=== PATIENT | male | born 1980 | race Caucasian/White ===

== ENCOUNTER 2021-10-04 16:55 | Emergency (ER) | payer BC ==
[2021-10-04] MEDS ORDERED: NORVASC 5 MG PO ONE (17:06)
[2021-10-04] MEDS ORDERED: Catapres 0.1 MG PO ONE (17:06)
[2021-10-04] MEDS ORDERED: VASOTEC I.V. 2.5 MG IV ONE ×2 (17:06→17:28)
[2021-10-04] MEDS ORDERED: Catapres 0.1 MG ONE (17:14)
[2021-10-04] MEDS ORDERED: NORVASC 5 MG ONE (17:14)
[2021-10-04] MEDS ORDERED: Sodium Chloride 0.9% 1000 ML 1,000 ML ONE (17:14)
[2021-10-04] MEDS ORDERED: Sodium Chloride 0.9% 1000 ML 1,000 ML IV SCH (17:15)
[2021-10-04 17:23] LABS: Basophil (Absolute #) 0.02 (0-0.4); Eosinophil % 4.4 % (0.00-5.0); Eosinophil (Absolute #) 0.41 (0-0.5); Hematocrit 49.8 % (42-50); Hemoglobin 16.9 gm/dl (12.5-18.0); Lymphocytes % 34.4 % (24.0-44.0); Mean Cell Volume 89.7 fl (78-100); Mean Corpuscular Hemoglobin 30.5 pg (26-32); Mean Corpuscular Hgb Concent. 33.9 g/dl (32-36); Mean Platelet Volume 11.3 fl (7.5-11.0); Monocyte (Absolute #) 1.07 (0.0-1.3); Monocytes % 11.5 % (0.0-12.0); Neutrophil % 49.5 % (36.0-66.0); Platelet Count 277 K/mm3 (150-450); Red Blood Count 5.55 M/mm3 (4.1-5.6); White Blood Count 9.3 K/mm3 (4.0-10.5)
[2021-10-04 17:29] LABS: INR 0.98 (0.8-3.0); PROTIME 11.6 SECONDS (9.4-12.5)
[2021-10-04 17:48] LABS: ALKALINE PHOSPHATASE 70 U/L (38-126); ANION GAP 10.9 MEQ/L (5-15); BLOOD UREA NITROGEN 14 mg/dL (9-20); CHLORIDE 102 mmol/L (98-107); Calcium 10.1 mg/dL (8.4-10.2); Carbon Dioxide 28 mmol/L (22-30); Creatinine 1 0.68 mg/dL (0.66-1.25); EST GLOMERULAR FILTRATION RATE > 60.0 ML/MIN; Glucose 89 mg/dL (74-106); LIPASE 96 U/L (23-300); NT PRO BNP 12.1 pg/mL (0-450); Potassium 3.8 mmol/L (3.5-5.1); SGOT/AST 30 U/L (17-59); SGPT/ALT 34 U/L (0-50); SODIUM 136 mmol/L (137-145); Total Protein 8.4 g/dL (6.3-8.2)
--- NOTE | 2021-10-04 17:57 | ERPHSYRPT ---
- History of Present Illness Time Seen by Provider: 10/04/21 17:10 Historian: patient Exam Limitations: no limitations (Patient is a 41-year-old male who has a long history of hypertension who went for 180 days or more without his medications. He went to the clinic to get them refilled and on Monday he started to have some chest pressure which has not gone away. So he went to the clinic to see what was happening.) Patient Subjective Stated Complaint: Pt states "I went to the clinic because I have been out of my blood pressure meds and went to the clinic to get them refilled and on monday I started to have chest pressure and it never went away so I went to the clinic to see what was happening." Triage Nursing Assessment: Pt presented alert and oriented X 3, skin pwd Pt ambulates with an upright steady gait, able to speak in clear full sentences pt in no apparent respiratory distress. pt resting comfortably on the bed. Physician History: Patient is a 41-year-old male who presents with a complaint of chest pressure which has been present for some time. He has a history of hypertension and was out of his medicine for almost 6 months when he went to the clinic to get his medicine he then developed some chest pressure. He went back to the clinic to see what might be causing the chest pressure which she refuses to call pain and was referred to the ER. His blood pressure medicine consist of amlodipine 5 mg a day his blood pressure has remained elevated despite restarting the medicine on arrival his blood pressure was it was approximately 200 systolic over 110 diastolic. His medication consist of amlodipine 5 mg daily and his blood pressure has not really come down much on the days that he has been on the amlodipine. 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.) Nitro Today/Relief: no nitro taken today Aspirin Treatment Today: no aspirin today Allergies/Adverse Reactions: No Known Drug Allergies Allergy (Unverified 10/04/21 17:08) Home Medications: Allopurinol 100 mg [Zyloprim 100 mg] 100 mg PO DAILY 10/04/21 [History] Amlodipine Besylate 5 mg [Norvasc 5 mg] 5 mg PO DAILY 10/04/21 [History] Hx Tetanus, Diphtheria Vaccination/Date Given: Yes Hx Influenza Vaccination/Date Given: No Hx Pneumococcal Vaccination/Date Given: No Immunizations Up to Date: Yes Travel Risk - International Travel Have you traveled outside of the country in past 3 weeks: No - Coronavirus Screening Are you exhibiting any of the following symptoms?: No Close contact with a COVID-19 positive Pt in past 14-21 Days: No - Vaccine Status Have you recieved a Covid-19 vaccination: Yes Regional Economic Liaison: Unknown - Vaccination Dates Date of 2cond Vaccination (if applicable): unknown Dates if Unknown: unknown - Review of Systems Constitutional: No Fever, No Chills Eyes: No Symptoms Ears, Nose, & Throat: No Symptoms Respiratory: No Cough, No Dyspnea Cardiac: No Chest Pain, No Edema, No Syncope Abdominal/Gastrointestinal: No Abdominal Pain, No Nausea, No Vomiting, No Diarrhea Genitourinary Symptoms: No Dysuria Musculoskeletal: No Back Pain, No Neck Pain Skin: No Rash Neurological: No Dizziness, No Focal Weakness, No Sensory Changes Psychological: No Symptoms Endocrine: No Symptoms All Other Systems: Reviewed and Negative - Past Medical History Pertinent Past Medical History: Yes Cardiac History: Hypertension Musculoskeletal History: Other Other Medical History: gout - Past Surgical History Past Surgical History: Yes Other Surgical History: hernia - Social History Smoking Status: Former smoker Exposure to second hand smoke: No Drug Use: none Patient Lives Alone: No - Nursing Vital Signs Nursing Vital Signs: Initial Vital Signs Temperature 98.2 F 10/04/21 17:01 Pulse Rate 82 10/04/21 17:01 Respiratory Rate 20 10/04/21 17:01 Blood Pressure 181/112 10/04/21 17:01 O2 Sat by Pulse Oximetry 99 10/04/21 17:01 Pain Scale Pain Intensity 0 - Physical Exam General Appearance: no apparent distress, alert Eye Exam: PERRL/EOMI, eyes nml inspection Ears, Nose, Throat Exam: normal ENT inspection, moist mucous membranes Neck Exam: normal inspection, non-tender, supple, full range of motion Respiratory Exam: normal breath sounds, lungs clear, No respiratory distress Cardiovascular Exam: regular rate/rhythm, normal heart sounds Gastrointestinal/Abdomen Exam: soft, No tenderness, No mass Back Exam: normal inspection, No CVA tenderness, No vertebral tenderness Extremity Exam: normal inspection, normal range of motion Neurologic Exam: alert, oriented x 3, cooperative, normal mood/affect, sensation nml, No motor deficits Skin Exam: normal color, warm, dry SpO2: 99 - Course Nursing assessment & vital signs reviewed: Yes EKG Interpreted by Me: RATE (82), Sinus Rhythm, NORMAL AXIS, NORMAL INTERVALS, Non-specific ST Changes Ordered Tests: Active Orders 24 hr Category Date Time Status Inspector Air Carrier STAT Care 10/04/21 17:07 Active EKG-ER Only STAT Care 10/04/21 17:06 Active IV Insertion STAT Care 10/04/21 17:06 Active CHEST 1 VIEW (PORTABLE) Stat Exams 10/04/21 17:07 Taken CBC W DIFF Stat Lab 10/04/21 17:05 Completed CMP Stat Lab 10/04/21 17:05 Completed D-DIMER QUANTITATIVE Stat Lab 10/04/21 17:05 Completed LIPASE Stat Lab 10/04/21 17:05 Completed Lactic Acid Stat Lab 10/04/21 17:06 Completed MAGNESIUM Stat Lab 10/04/21 17:05 Completed NT PRO BNP Stat Lab 10/04/21 17:05 Completed PROTIME WITH INR Stat Lab 10/04/21 17:05 Completed TROPONIN Q3H Lab 10/04/21 17:05 Completed TROPONIN Q3H Lab 10/04/21 20:15 Ordered TROPONIN Q3H Lab 10/04/21 23:15 Ordered TROPONIN Q3H Lab 10/05/21 02:15 Ordered TROPONIN Q3H Lab 10/05/21 05:15 Ordered UA W/RFX UR CULTURE Stat Lab 10/04/21 17:06 Ordered Medication Summary Generic Name Dose Route Start Last Admin Trade Name Freq PRN Reason Stop Dose Admin Sodium Chloride 1,000 mls @ 100 mls/hr 10/04/21 17:15 10/04/21 17:15 Sodium Chloride 0.9% 1000 Ml IV 11/03/21 17:14 100 mls/hr .Q10H RANJIT Administration Discontinued Medications Generic Name Dose Route Start Last Admin Trade Name Freq PRN Reason Stop Dose Admin Amlodipine Besylate 5 mg 10/04/21 17:06 10/04/21 17:16 Amlodipine Besylate 5 Mg Tablet PO 10/04/21 17:07 5 mg STAT ONE Administration Amlodipine Besylate Confirm 10/04/21 17:14 Amlodipine Besylate 5 Mg Tablet Administered 10/04/21 17:15 Dose 5 mg .ROUTE .STK-MED ONE Clonidine 0.1 mg 10/04/21 17:06 10/04/21 17:16 Clonidine Hcl 0.1 Mg Tablet PO 10/04/21 17:07 0.1 mg STAT ONE Administration Clonidine Confirm 10/04/21 17:14 Clonidine Hcl 0.1 Mg Tablet Administered 10/04/21 17:15 Dose 0.1 mg .ROUTE .STK-MED ONE Enalaprilat 1.25 mg 10/04/21 17:06 10/04/21 17:29 Enalaprilat 2.5 Mg Injection IV 10/04/21 17:07 1.25 mg STAT ONE Administration Enalaprilat Confirm 10/04/21 17:28 Enalaprilat 2.5 Mg Injection Administered 10/04/21 17:29 Dose 2.5 mg IV .STK-MED ONE Lab/Rad Data: Laboratory Result Diagrams 10/04/21 17:05 10/04/21 17:05 Laboratory Results 10/04/21 10/04/21 10/04/21 Range/Units 17:06 17:05 17:05 WBC (4.0-10.5) K/mm3 RBC (4.1-5.6) M/mm3 Hgb (12.5-18.0) gm/dl Hct (42-50) % MCV (78-100) fl MCH (26-32) pg MCHC (32-36) g/dl RDW (11.5-14.0) % Plt Count (150-450) K/mm3 MPV (7.5-11.0) fl Gran % (36.0-66.0) % Eos # (Auto) (0-0.5) Absolute Lymphs (auto) (1.0-4.6) Absolute Monos (auto) (0.0-1.3) Lymphocytes % (24.0-44.0) % Monocytes % (0.0-12.0) % Eosinophils % (0.00-5.0) % Basophils % (0.0-0.4) % Absolute Granulocytes (1.4-6.9) Basophils # (0-0.4) PT 11.6 (9.4-12.5) SECONDS INR 0.98 (0.8-3.0) D-Dimer 357 (215-500) ng/mL Sodium (137-145) mmol/L Potassium (3.5-5.1) mmol/L Chloride (98-107) mmol/L Carbon Dioxide (22-30) mmol/L Anion Gap (5-15) MEQ/L BUN (9-20) mg/dL Creatinine (0.66-1.25) mg/dL Estimated GFR ML/MIN Glucose (74-106) mg/dL Lactic Acid 1.8 (0.4-2.0) Calcium (8.4-10.2) mg/dL Magnesium (1.6-2.3) mg/dL Total Bilirubin (0.2-1.3) mg/dL AST (17-59) U/L ALT (0-50) U/L Alkaline Phosphatase (38-126) U/L Troponin I < 0.012 (0.000-0.034) ng/mL NT-Pro-B Natriuret Pep (0-450) pg/mL Serum Total Protein (6.3-8.2) g/dL Albumin (3.5-5.0) g/dL Lipase (23-300) U/L 10/04/21 10/04/21 Range/Units 17:05 17:05 WBC 9.3 (4.0-10.5) K/mm3 RBC 5.55 (4.1-5.6) M/mm3 Hgb 16.9 (12.5-18.0) gm/dl Hct 49.8 (42-50) % MCV 89.7 (78-100) fl MCH 30.5 (26-32) pg MCHC 33.9 (32-36) g/dl RDW 13.0 (11.5-14.0) % Plt Count 277 (150-450) K/mm3 MPV 11.3 H (7.5-11.0) fl Gran % 49.5 (36.0-66.0) % Eos # (Auto) 0.41 (0-0.5) Absolute Lymphs (auto) 3.20 (1.0-4.6) Absolute Monos (auto) 1.07 (0.0-1.3) Lymphocytes % 34.4 (24.0-44.0) % Monocytes % 11.5 (0.0-12.0) % Eosinophils % 4.4 (0.00-5.0) % Basophils % 0.2 (0.0-0.4) % Absolute Granulocytes 4.60 (1.4-6.9) Basophils # 0.02 (0-0.4) PT (9.4-12.5) SECONDS INR (0.8-3.0) D-Dimer (215-500) ng/mL Sodium 136 L (137-145) mmol/L Potassium 3.8 (3.5-5.1) mmol/L Chloride 102 (98-107) mmol/L Carbon Dioxide 28 (22-30) mmol/L Anion Gap 10.9 (5-15) MEQ/L BUN 14 (9-20) mg/dL Creatinine 0.68 (0.66-1.25) mg/dL Estimated GFR > 60.0 ML/MIN Glucose 89 (74-106) mg/dL Lactic Acid (0.4-2.0) Calcium 10.1 (8.4-10.2) mg/dL Magnesium 2.0 (1.6-2.3) mg/dL Total Bilirubin 0.90 (0.2-1.3) mg/dL AST 30 (17-59) U/L ALT 34 (0-50) U/L Alkaline Phosphatase 70 (38-126) U/L Troponin I (0.000-0.034) ng/mL NT-Pro-B Natriuret Pep 12.1 (0-450) pg/mL Serum Total Protein 8.4 H (6.3-8.2) g/dL Albumin 5.0 (3.5-5.0) g/dL Lipase 96 (23-300) U/L - Progress Progress: improved Air Movement: good Blood Culture(s) Obtained: No Antibiotics given: No Counseled pt/family regarding: lab results, need for follow-up - Departure Departure Disposition: Home Clinical Impression: Hypertension, Chest discomfort Condition: Stable Critical Care Time: No Referrals: DOCTOR,NO FAMILY [Primary Care Provider] - Follow up/PCP as directed Instructions: Chest Pain (DC), High Blood Pressure (DC) Prescriptions: Amlodipine Besylate [Norvasc] 10 mg PO DAILY 30 Days #30 tablet Enalapril Maleate 5 mg [Vasotec 5 MG] 5 mg PO DAILY 30 Days #30 tablet
[2021-10-04 18:12] VITALS: BP 150/95; PULSE 72; O2SAT 95
--- NOTE | 2021-10-05 08:37 | XRAY ---
Indication: Chest pressure. Comparison: None Portable apical lordotic chest demonstrates a few bilateral calcified granulomas. No focal infiltrate, consolidation, or large effusion. Heart not enlarged for AP portable technique. Bony thorax intact. Impression: Nonacute chest. 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
== END 2021-10-04 18:16 | disposition home or self-care (01) ==
LOC: ED 16:55
DX: I10 Essential (primary) hypertension (principal); R07.89 Other chest pain; Z79.899 Other long term (current) drug therapy
CPT/HCPCS: 36000; 36415; 71045; 80053; 83605; 83690; 83735; 83880; 84484; 85025; 85379; 85610; 93005; 93041; 96374; 96375; 99284; A9270-GY